=== PATIENT | female | born 1995 | race Two or more races ===

== ENCOUNTER 2021-12-20 07:40 | Inpatient (IN) | payer OTHER ==
[2021-12-20] MEDS ORDERED: AMPICILLIN - 2 GM in SODIUM CHLORIDE 100 ML IVPB ONE (08:30)
[2021-12-20] MEDS ORDERED: AMPICILLIN SODIUM 2 GM VIAL ONE (08:53)
[2021-12-20] MEDS: LACTATED RINGERS SOLUTION 1,000 ML IV SCH ×2 (09:25→18:28)
[2021-12-20 10:13] LABS: BASO % 0.5 % (0-2.0); HEMATOCRIT 38.4 % (32.4-45.2); HEMOGLOBIN 13.2 GM/dL (10.7-15.3); LYMPH % 11.3 % (8-40); MCH 29.6 pg (25.7-33.7); MCHC 34.3 g/dl (32.0-36.0); MEAN CELL VOLUME 86.4 fl (80-96); MEAN PLT VOLUME 9.8 fl (7.5-11.1); MONO % 6.2 % (3.8-10.2); PLATELET COUNT 164 10^3/uL (134-434); RBC 4.45 M/mm3 (3.60-5.2); RDW 15.1 % (11.6-15.6); WHITE BLOOD COUNT 10.7 K/mm3 (4.0-10.0)
[2021-12-20 10:21] LABS: INR 0.92 (0.83-1.09); PROTHROMBIN TIME (PATIENT) 10.6 SEC (9.7-13.0)
[2021-12-20 10:24] LABS: ACTIVATED PTT 26.1 SECONDS (25.2-36.5)
[2021-12-20 10:36] LABS: BLOOD UREA NITROGEN 8.2 mg/dL (7-18)
[2021-12-20 10:38] VITALS: BMI 31.5
[2021-12-20 10:40] LABS: CREATININE 0.6 mg/dL (0.55-1.3)
[2021-12-20] MEDS ORDERED: AMPICILLIN SODIUM 1 GM VIAL ONE ×3 (12:30→21:09)
[2021-12-20] MEDS: AMPICILLIN - 1 GM in SODIUM CHLORIDE 100 ML IVPB SCH ×3 (12:38→21:20)
[2021-12-20 16:00] LABS: POC NITRAZINE POS
[2021-12-20] MEDS ORDERED: OXYTOCIN 30 UNITS in 0.9% NS 30 UNIT/500 ML INFUS.BAG IVPB SCH (17:15)
[2021-12-20] MEDS ORDERED: OXYTOCIN 30 UNITS in 0.9% NS 30 UNIT/500 ML INFUS.BAG IVPB ONE (18:12)
[2021-12-20] MEDS ORDERED: FENTANYL/BUPIVACAINE/NS/PF - PCEA - 50 ML DISP.SYRIN EP ONE (21:20)
[2021-12-20] MEDS ORDERED: NALOXONE HCL 0.4 MG/ML VIAL IVPUSH PRN (22:10)
[2021-12-20] MEDS ORDERED: FENTANYL/BUPIVACAINE/NS/PF - PCEA - 50 ML DISP.SYRIN EP SCH (22:15)
[2021-12-20] MEDS ORDERED: OXYTOCIN 20 UNITS in 0.9% NS 20 UNIT/1,000 ML INFUS.BAG IV ONE (23:26)
[2021-12-21] MEDS ORDERED: BENZOCAINE 20% 57 GM BOTTLE TP PRN (01:12)
[2021-12-21] MEDS ORDERED: BENZOCAINE 28 GM HEMORRHOIDAL OINTMENT TP PRN (01:12)
[2021-12-21] MEDS ORDERED: METHYLERGONOVINE MALEATE 0.2 MG/1 ML AMP IM PRN (01:12)
[2021-12-21] MEDS ORDERED: BISACODYL 10 MG SUPP.RECT RC PRN (01:12)
[2021-12-21] MEDS ORDERED: oxyCODONE HCL 5 MG TABLET PO PRN (01:12)
[2021-12-21] MEDS ORDERED: WITCH HAZEL 50% (TUCKS) 40 PAD/JAR PAD TP PRN (01:12)
[2021-12-21] MEDS ORDERED: ACETAMINOPHEN 325 MG TABLET (FP) PO PRN (01:12)
[2021-12-21] MEDS ORDERED: OXYTOCIN 20 UNITS in 0.9% NS 20 UNIT/1,000 ML INFUS.BAG IV SCH (01:15)
[2021-12-21] MEDS: AMPICILLIN - 1 GM in SODIUM CHLORIDE 100 ML IVPB SCH (02:47)
[2021-12-21] MEDS: IBUPROFEN 600 MG TABLET (FP) PO PRN ×2 (09:30→15:55)
[2021-12-21] MEDS: PRENATAL VITAMINS W/ FOLIC ACID TABLET (FP) PO SCH (09:30)
[2021-12-21 20:59] VITALS: TEMP 98.1
[2021-12-22] MEDS: IBUPROFEN 600 MG TABLET (FP) PO PRN ×2 (03:19→09:44)
[2021-12-22 08:10] LABS: BASO % 0.3 % (0-2.0); EOS % 1.2 % (0-4.5); HEMATOCRIT 34.6 % (32.4-45.2); HEMOGLOBIN 11.4 GM/dL (10.7-15.3); LYMPH % 9.9 % (8-40); MCH 28.5 pg (25.7-33.7); MCHC 32.8 g/dl (32.0-36.0); MEAN CELL VOLUME 87.1 fl (80-96); MONO % 6.5 % (3.8-10.2); NEUT % 82.1 % (42.8-82.8); PLATELET COUNT 159 10^3/uL (134-434); RBC 3.98 M/mm3 (3.60-5.2); RDW 15.4 % (11.6-15.6); WHITE BLOOD COUNT 18.8 K/mm3 (4.0-10.0)
[2021-12-22] MEDS: PRENATAL VITAMINS W/ FOLIC ACID TABLET (FP) PO SCH (09:44)
[2021-12-22 09:59] VITALS: BP 125/70; PULSE 90
[2021-12-22] MEDS ORDERED: SENNOSIDES/DOCUSATE COMBO (SENNA PLUS) TABLET (UD) PO PRN (22:00)
== END 2021-12-22 13:00 | disposition home or self-care (01) | DRG 560 ==
LOC: JLDR 07:40 → J3W 12-21 02:49
PROVIDERS: ADMIT Obstetrics & Gynecology; ATTEND Obstetrics & Gynecology
PROC: 10E0XZZ Delivery of Products of Conception, External Approach (ICD-10-PCS; principal; 2021-12-21)
PROC: 0HQ9XZZ Repair Perineum Skin, External Approach (ICD-10-PCS; 2021-12-21)
PROC: 0W8NXZZ Division of Female Perineum, External Approach (ICD-10-PCS; 2021-12-21)
DX: O70.0 First degree perineal laceration during delivery (principal); O24.429 Gestational diabetes mellitus in childbirth, unspecified control; Z3A.38 38 weeks gestation of pregnancy; Z22.330 Carrier of Group B streptococcus; Z37.0 Single live birth
CPT/HCPCS: 36415; 59409; 80048; 82962; 83986-QW; 85025; 85610; 85730; 86780; 86850; 86900; 86901; C9803; U0003; U0005

== ENCOUNTER 2023-10-15 14:27 | Emergency (ER) | payer OTHER ==
[2023-10-15 14:32] VITALS: BP 115/75; RESP 18; TEMP 99.1; BMI 24.0
[2023-10-15] MEDS ORDERED: FAMOTIDINE 20 MG/50 ML IVPB 20 MG/50 ML MG IVPB ONE ×2 (15:02→16:07)
[2023-10-15] MEDS ORDERED: SODIUM CHLORIDE 1,000 ML IV STA (15:03)
[2023-10-15 15:35] LABS: BASO % 0.1 % (0-2.0); EOS % 0.5 % (0-4.5); HEMATOCRIT 39.9 % (32.4-45.2); HEMOGLOBIN 13.4 GM/dL (10.7-15.3); LYMPH % 4.6 % (8-40); MCH 29.5 pg (25.7-33.7); MCHC 33.6 g/dl (32.0-36.0); MEAN PLT VOLUME 9.7 fl (7.5-11.1); MONO % 4.3 % (3.8-10.2); NEUT % 90.5 % (42.8-82.8); PLATELET COUNT 227 10^3/uL (134-434); RBC 4.54 M/mm3 (3.60-5.2); WHITE BLOOD COUNT 14.1 K/mm3 (4.0-10.0)
[2023-10-15 15:39] LABS: EPI CELLS >36 /uL (0-25.1); HYALINE CASTS 4 /uL (0-3.1); PH,URINE 5.5 (5.0-8.0); URINE APPEARANCE CLOUDY; URINE BACTERIA 4883 /uL (0-1359); URINE BILIRUBIN NEGATIVE (NEGATIVE); URINE COLOR DK YELLOW; URINE GLUCOSE (UA) NEGATIVE (NEGATIVE); URINE KETONE 4+ (NEGATIVE); URINE LEUK ESTERASE TRACE (NEGATIVE); URINE NITRITE NEGATIVE (NEGATIVE); URINE PROTEIN TRACE (NEGATIVE); URINE RBC 35 /uL (0-23.9); URINE UROBILINOGEN 0.2 mg/dL (0.2-1.0); URINE WBC 79 /uL (0-25.8)
[2023-10-15] MEDS ORDERED: CEPHALEXIN MONOHYDRATE 500 MG CAPSULE (UD) PO ONE (15:52)
[2023-10-15 15:54] LABS: CALCIUM 9.6 mg/dL (8.5-10.1)
[2023-10-15 15:55] LABS: ALBUMIN 3.8 g/dl (3.4-5.0); BLOOD UREA NITROGEN 8.5 mg/dL (7-18); MAGNESIUM 1.6 mg/dL (1.8-2.4)
[2023-10-15 15:57] LABS: CREATININE 0.7 mg/dL (0.55-1.3)
[2023-10-15 15:59] LABS: BILIRUBIN,TOTAL 0.5 mg/dL (0.2-1); TOT PROT 7.8 g/dl (6.4-8.2)
[2023-10-15] MEDS ORDERED: PYRIDOXINE HCL (B-6) 50 MG TABLET (FP) PO SCH (16:00)
[2023-10-15] MEDS ORDERED: CEPHALEXIN MONOHYDRATE 500 MG CAPSULE (UD) ONE (16:07)
[2023-10-15 17:56] VITALS: PULSE 93
== END 2023-10-15 18:07 | disposition home or self-care (01) ==
LOC: JER 14:27
PROC: 3E033GC Introduction of Other Therapeutic Substance into Peripheral Vein, Percutaneous Approach (ICD-10-PCS; principal; 2023-10-15)
PROC: 3E0337Z Introduction of Electrolytic and Water Balance Substance into Peripheral Vein, Percutaneous Approach (ICD-10-PCS; 2023-10-15)
DX: O23.40 Unspecified infection of urinary tract in pregnancy, unspecified trimester (principal); Z3A.00 Weeks of gestation of pregnancy not specified
CPT/HCPCS: 0241U-QW; 36415; 80053; 81003; 83690; 83735; 84702; 84703; 85025; 86850; 86900; 86901; 99284-25

== ENCOUNTER 2024-05-17 02:45 | Inpatient (IN) | payer OTHER ==
[2024-05-17] MEDS: ELECTROLYTE-148 SOLN 1,000 ML IV SCH (03:30)
[2024-05-17] MEDS ORDERED: AMPICILLIN SODIUM 2 GM VIAL ONE (03:50)
[2024-05-17] MEDS: AMPICILLIN - 2 GM in SODIUM CHLORIDE 100 ML IVPB ONE (03:50)
[2024-05-17 04:02] VITALS: BMI 29.2
[2024-05-17 04:24] LABS: BASO % 0.2 % (0-2.0); EOS % 1.8 % (0-4.5); HEMOGLOBIN 12.6 GM/dL (10.7-15.3); LYMPH % 21.4 % (8-40); MCH 29.4 pg (25.7-33.7); MCHC 34.1 g/dl (32.0-36.0); MEAN CELL VOLUME 86.4 fl (80-96); MEAN PLT VOLUME 10.1 fl (7.5-11.1); MONO % 8.3 % (3.8-10.2); NEUT % 68.3 % (42.8-82.8); PLATELET COUNT 179 10^3/uL (134-434); RBC 4.28 M/mm3 (3.60-5.2); RDW 14.6 % (11.6-15.6); WHITE BLOOD COUNT 12.1 K/mm3 (4.0-10.0)
[2024-05-17 04:27] LABS: INR 0.86 (0.83-1.09); PROTHROMBIN TIME (PATIENT) 9.9 SEC (9.7-13.0)
[2024-05-17 04:30] LABS: ACTIVATED PTT 21.7 SECONDS (25.2-36.5)
[2024-05-17 04:38] LABS: BLOOD UREA NITROGEN 9.8 mg/dL (7-18); POTASSIUM 4.4 mmol/L (3.5-5.1)
[2024-05-17 04:40] LABS: CREATININE 0.5 mg/dL (0.55-1.3)
[2024-05-17] MEDS ORDERED: FENTANYL/BUPIVACAINE/NS/PF - PCEA - 50 ML DISP.SYRIN EP ONE (04:41)
[2024-05-17] MEDS: FENTANYL/BUPIVACAINE/NS/PF - PCEA - 50 ML DISP.SYRIN EP SCH (05:25)
[2024-05-17] MEDS ORDERED: NALOXONE HCL 0.4 MG/ML VIAL IVPUSH PRN (05:33)
[2024-05-17] MEDS ORDERED: AMPICILLIN SODIUM 1 GM VIAL ONE (07:58)
[2024-05-17] MEDS: AMPICILLIN - 1 GM in SODIUM CHLORIDE 100 ML IVPB SCH (08:00)
[2024-05-17] MEDS ORDERED: LIDOCAINE HCL 1% PRESERVATIVE FREE - 30ML VIAL ONE (09:42)
[2024-05-17] MEDS ORDERED: OXYTOCIN 20 UNITS in 0.9% NS 20 UNIT/1,000 ML INFUS.BAG IV ONE ×2 (09:43→12:16)
[2024-05-17] MEDS: OXYTOCIN 20 UNITS in 0.9% NS 20 UNIT/1,000 ML INFUS.BAG IV SCH (09:50)
[2024-05-17] MEDS ORDERED: BENZOCAINE 20% 57 GM BOTTLE TP PRN (10:01)
[2024-05-17] MEDS ORDERED: oxyCODONE HCL 5 MG TABLET PO PRN (10:01)
[2024-05-17] MEDS ORDERED: METHYLERGONOVINE MALEATE 0.2 MG/1 ML AMP IM PRN (10:01)
[2024-05-17] MEDS ORDERED: BISACODYL 10 MG SUPP.RECT RC PRN (10:01)
[2024-05-17] MEDS ORDERED: WITCH HAZEL 50% (TUCKS) 40 PAD/JAR PAD TP PRN (10:01)
[2024-05-17 10:38] LABS: CORD BASE EXCESS -1.7 mmol/L (0-2); CORD PCO2 55.4 mmHg (30-78); CORD pH 7.289 (7.14-7.44)
[2024-05-17 10:42] LABS: CORD BASE EXCESS -1.7 mmol/L (0-2); CORD HCO3 23.3 mmHg (20-29); CORD PCO2 40.7 mmHg (30-78); CORD pH 7.376 (7.14-7.44)
[2024-05-17] MEDS: IBUPROFEN 600 MG TABLET (FP) PO PRN (13:23)
[2024-05-17] MEDS: ACETAMINOPHEN 325 MG TABLET (FP) PO PRN (14:22)
[2024-05-18 02:07] VITALS: RESP 18
[2024-05-18 08:28] LABS: EOS % 1.3 % (0-4.5); HEMATOCRIT 34.3 % (32.4-45.2); HEMOGLOBIN 11.6 GM/dL (10.7-15.3); LYMPH % 14.5 % (8-40); MCH 29.2 pg (25.7-33.7); MCHC 33.7 g/dl (32.0-36.0); MEAN CELL VOLUME 86.6 fl (80-96); MEAN PLT VOLUME 9.1 fl (7.5-11.1); MONO % 6.3 % (3.8-10.2); NEUT % 77.4 % (42.8-82.8); PLATELET COUNT 164 10^3/uL (134-434); RBC 3.96 M/mm3 (3.60-5.2); RDW 14.8 % (11.6-15.6); WHITE BLOOD COUNT 18.7 K/mm3 (4.0-10.0)
[2024-05-18 08:29] LABS: BASO % 0.5 % (0-2.0)
[2024-05-18] MEDS: BENZOCAINE 28 GM HEMORRHOIDAL OINTMENT TP PRN (11:24)
[2024-05-18] MEDS ORDERED: SENNOSIDES/DOCUSATE COMBO (SENNA PLUS) TABLET (UD) PO PRN (22:00)
[2024-05-19 13:32] VITALS: BP 108/65; PULSE 77; TEMP 97.8
== END 2024-05-19 15:30 | disposition home or self-care (01) | DRG 560 ==
LOC: JDEL 02:45 → JLDR 03:10 → J3W 12:20
PROVIDERS: ADMIT Obstetrics & Gynecology; ATTEND Obstetrics & Gynecology
PROC: 10E0XZZ Delivery of Products of Conception, External Approach (ICD-10-PCS; principal; 2024-05-17)
PROC: 0HQ9XZZ Repair Perineum Skin, External Approach (ICD-10-PCS; 2024-05-17)
DX: O70.0 First degree perineal laceration during delivery (principal); Z3A.38 38 weeks gestation of pregnancy; Z37.0 Single live birth
CPT/HCPCS: 36415; 36600; 59409; 80048; 82803; 85025; 85610; 85730; 86780; 86850; 86900; 86901